=== PATIENT | male | born 1935 | race Caucasian/White ===

== ENCOUNTER 2021-09-16 08:04 | Inpatient (IN) | payer OTHER, BC ==
[2021-09-12 16:55] VITALS: BMI 39.5
[2021-09-16] MEDS ORDERED: CELECOXIB 200 MG CAPSULE PO ONE (09:50)
[2021-09-16] MEDS ORDERED: BUPIVACAINE LIPOSOME/PF (EXPAREL) 266 MG/20 ML VIAL ONE (10:40)
[2021-09-16] MEDS ORDERED: MIDAZOLAM HCL 2 MG/2 ML SINGLE DOSE VIAL ONE ×2 (10:40→11:59)
[2021-09-16] MEDS ORDERED: FENTANYL CITRATE/PF 50 MCG/ML VIAL ONE (10:40)
[2021-09-16] MEDS ORDERED: BUPIVACAINE HCL/PF 0.5% (5MG/ML) 10 ML VIAL ONE (10:41)
[2021-09-16] MEDS ORDERED: ceFAZolin SODIUM 1 GM VIAL ONE ×3 (10:52→19:59)
[2021-09-16] MEDS ORDERED: VANCOMYCIN 1,000 MG VIAL (RESTRICTED TO ID ONLY) ONE (10:52)
[2021-09-16] MEDS ORDERED: CEFAZOLIN 2 GM in DEXTROSE 5%-WATER - 50 ML IVPB ONE (11:00)
[2021-09-16] MEDS ORDERED: TRANEXAMIC ACID 1000 MG/10 ML VIAL IVPUSH ONE (11:00)
[2021-09-16] MEDS ORDERED: PROPOFOL 20 ML ONE ×2 (11:10)
[2021-09-16] MEDS ORDERED: SUCCINYLCHOLINE CHLORIDE 200 MG/10 ML SYRINGE ONE (11:13)
[2021-09-16] MEDS ORDERED: TRANEXAMIC ACID 1000 MG/10 ML VIAL ONE (11:55)
[2021-09-16] MEDS ORDERED: ONDANSETRON 4 MG/2 ML VIAL ONE (12:19)
[2021-09-16] MEDS ORDERED: DEXAMETHASONE SOD PHOSPHATE 4 MG/1 ML VIAL ONE (12:19)
[2021-09-16] MEDS ORDERED: MAG HYDROX/AL HYDROX/SIMETH 30 ML UNIT-DOSE CUP PO PRN (13:36)
[2021-09-16] MEDS ORDERED: ONDANSETRON 4 MG/2 ML VIAL IVPUSH PRN (13:36)
[2021-09-16] MEDS ORDERED: LACTATED RINGERS SOLUTION 1,000 ML IV SCH (13:45)
[2021-09-16] MEDS: KETOROLAC TROMETHAMINE 15 MG/ML VIAL IVPUSH SCH ×2 (14:40→20:35)
[2021-09-16] MEDS ORDERED: ACETAMINOPHEN INJECTION 100 ML IVPB ONE (14:40)
[2021-09-16] MEDS ORDERED: KETOROLAC TROMETHAMINE 30 MG/1 ML VIAL ONE (14:40)
[2021-09-16] MEDS ORDERED: ACETAMINOPHEN 1000 MG/100 ML BAG IVPB ONE (15:00)
[2021-09-16] MEDS ORDERED: KETOROLAC TROMETHAMINE 30 MG/1 ML VIAL IVPUSH SCH (15:00)
[2021-09-16] MEDS ORDERED: oxyCODONE HCL 5 MG TABLET ONE (15:03)
[2021-09-16] MEDS: oxyCODONE HCL 5 MG TABLET PO PRN ×3 (15:10→21:11)
[2021-09-16] MEDS ORDERED: DEXTROSE 5%-WATER - 100 ML IVPB ONE (19:58)
[2021-09-16] MEDS: CEFAZOLIN 3 GM in DEXTROSE 5%-WATER - 100 ML IVPB SCH (20:35)
[2021-09-16] MEDS: RANOLAZINE E.R. 500 MG TABLET (FP) PO SCH (21:10)
[2021-09-16] MEDS: SENNOSIDES/DOCUSATE COMBO (SENNA PLUS) TABLET (UD) PO SCH (21:11)
[2021-09-16] MEDS ORDERED: ZOLPIDEM TARTRATE 5 MG TABLET PO ONE ×2 (21:41→23:15)
[2021-09-16] MEDS ORDERED: ATORVASTATIN CA 20 MG TABLET (FP) PO SCH (22:00)
[2021-09-16] MEDS ORDERED: ZOLPIDEM TARTRATE 5 MG TABLET PO PRN (22:00)
[2021-09-16] MEDS ORDERED: PATIENT'S OWN MEDICATION (NON-FORMULARY) (Simvastatin 40 MG Tablet) PO SCH (22:00)
[2021-09-16] MEDS ORDERED: MONTELUKAST NA 10 MG TABLET PO SCH (22:00)
[2021-09-16] MEDS ORDERED: PATIENT'S OWN MEDICATION (NON-FORMULARY) (Zolpidem Tartrate [Ambien Cr] 12.5 MG Tab.Mphase PO SCH (22:00)
[2021-09-17] MEDS ORDERED: ceFAZolin SODIUM 1 GM VIAL ONE (04:10)
[2021-09-17] MEDS ORDERED: DEXTROSE 5%-WATER - 100 ML IVPB ONE (04:10)
[2021-09-17] MEDS: CEFAZOLIN 3 GM in DEXTROSE 5%-WATER - 100 ML IVPB SCH (04:15)
[2021-09-17] MEDS: oxyCODONE HCL 5 MG TABLET PO PRN ×3 (06:23→12:35)
[2021-09-17] MEDS ORDERED: ASPIRIN 325 MG TABLET PO SCH (08:00)
[2021-09-17 08:09] LABS: HEMATOCRIT 30.4 % (35.4-49); HEMOGLOBIN 10.8 G/dL (11.7-16.9); MCH 34.2 pg (25.7-33.7); MCHC 35.5 g/dl (32.0-35.9); MEAN CELL VOLUME 96.5 fl (80-96); MEAN PLT VOLUME 7.9 fl (7.5-11.1); PLATELET COUNT 238.6 10^3/uL (134-434); RBC 3.15 10^6/uL (4.00-5.60); RDW 13.7 % (11.9-15.9); WHITE BLOOD COUNT 10.2 10^3/uL (4.0-10.8)
[2021-09-17] MEDS: RANOLAZINE E.R. 500 MG TABLET (FP) PO SCH (09:24)
[2021-09-17] MEDS: SENNOSIDES/DOCUSATE COMBO (SENNA PLUS) TABLET (UD) PO SCH (09:25)
[2021-09-17] MEDS ORDERED: LOSARTAN POTASSIUM 50 MG TABLET PO SCH (10:00)
[2021-09-17] MEDS ORDERED: HYDROCHLOROTHIAZIDE 12.5 MG CAPSULE (FP) PO SCH (10:00)
[2021-09-17] MEDS ORDERED: ESCITALOPRAM OXALATE 10 MG TABLET PO SCH (10:00)
[2021-09-17] MEDS ORDERED: PANTOPRAZOLE 40 MG TABLET PO SCH (10:00)
[2021-09-17] MEDS ORDERED: MULTIVITAMINS (DAILY MVI) TABLET (FP) PO SCH (10:00)
[2021-09-17] MEDS ORDERED: amLODIPine BESYLATE 5 MG TABLET (FP) PO SCH (10:00)
[2021-09-17 14:07] VITALS: BP 137/50; PULSE 76; TEMP 98.4
== END 2021-09-17 16:18 | disposition home health service (06) | DRG 470 ==
LOC: FM/S 08:04
PROVIDERS: ADMIT Orthopaedic Surgery; ATTEND Orthopaedic Surgery
PROC: 8E0Y0CZ Robotic Assisted Procedure of Lower Extremity, Open Approach (ICD-10-PCS; 2021-09-16)
PROC: 0SRC0JA Replacement of Right Knee Joint with Synthetic Substitute, Uncemented, Open Approach (ICD-10-PCS; principal; 2021-09-16 12:05)
DX: M17.11 Unilateral primary osteoarthritis, right knee (principal)
CPT/HCPCS: 36415; 73560-TC-RT-FY; 85027; 94660; 94760; 97010-GP; 97116-GP; 97161-GP; C9803-CS; U0003; U0005

== ENCOUNTER 2021-12-16 14:40 | Emergency (ER) | payer OTHER, BC ==
[2021-12-16 14:51] VITALS: BP 133/61; PULSE 87; RESP 20; TEMP 97.7; BMI 36.3
[2021-12-16] MEDS ORDERED: ACETAMINOPHEN 1000 MG/100 ML BAG IVPB ONE (15:01)
[2021-12-16] MEDS ORDERED: SODIUM CHLORIDE 500 ML IV STA ×2 (15:02→16:47)
[2021-12-16] MEDS ORDERED: ACETAMINOPHEN INJECTION 100 ML IVPB ONE (15:04)
[2021-12-16 15:45] LABS: HEMATOCRIT 40.3 % (35.4-49); HEMOGLOBIN 14.3 G/dL (11.7-16.9); MCH 31.5 pg (25.7-33.7); MCHC 35.5 g/dl (32.0-35.9); MEAN CELL VOLUME 88.9 fl (80-96); MEAN PLT VOLUME 7.5 fl (7.5-11.1); PLATELET COUNT 357.1 10^3/uL (134-434); RBC 4.53 10^6/uL (4.00-5.60); WHITE BLOOD COUNT 9.3 10^3/uL (4.0-10.8)
[2021-12-16 15:49] LABS: PLATELET ESTIMATE ADEQUATE
[2021-12-16 15:53] LABS: EPITHELIAL CELLS FEW /hpf
[2021-12-16 15:54] LABS: ALBUMIN 4.5 g/dl (3.4-5.0); BILIRUBIN,TOTAL 1.3 mg/dl (0.2-1); CALCIUM 10.4 mg/dl (8.5-10); CREATININE 1.2 mg/dl (0.55-1.3); TOT PROT 7.7 g/dl (6.4-8.2)
== END 2021-12-16 19:14 | disposition home or self-care (01) ==
LOC: FER 14:40
PROC: 3E033GC Introduction of Other Therapeutic Substance into Peripheral Vein, Percutaneous Approach (ICD-10-PCS; principal; 2021-12-16)
DX: R10.84 Generalized abdominal pain (principal)
CPT/HCPCS: 36415; 74177-TC; 80053; 81003; 81015; 83690; 85027; 99285-25; Q9967

== ENCOUNTER 2021-12-24 13:04 | Inpatient (IN) | payer OTHER, BC ==
[2021-12-24] MEDS ORDERED: ONDANSETRON 4 MG/2 ML VIAL IVPB ONE (13:52)
[2021-12-24] MEDS ORDERED: MAG HYDROX/AL HYDROX/SIMETH -MYLANTA- ORAL SUSPENSION PO ONE (13:52)
[2021-12-24] MEDS ORDERED: FAMOTIDINE 20 MG/50 ML IVPB 20 MG in PREMIX 50 IVPB ONE (13:52)
[2021-12-24] MEDS ORDERED: SUCRALFATE 1 GM TABLET (FP) PO ONE (13:53)
[2021-12-24] MEDS ORDERED: SUCRALFATE 1 GM/10 ML UNIT DOSE CUPS ONE (14:00)
[2021-12-24] MEDS ORDERED: ONDANSETRON 4 MG/2 ML VIAL ONE (14:00)
[2021-12-24] MEDS ORDERED: FAMOTIDINE 20 MG/50 ML IVPB 20 MG/50 ML MG IVPB ONE (14:01)
[2021-12-24] MEDS ORDERED: MAG HYDROX/AL HYDROX/SIMETH 30 ML UNIT-DOSE CUP ONE (14:01)
[2021-12-24 14:45] LABS: HEMATOCRIT 36.5 % (35.4-49); MCHC 35.7 g/dl (32.0-35.9); MEAN CELL VOLUME 89.8 fl (80-96); MEAN PLT VOLUME 7.7 fl (7.5-11.1); RBC 4.07 10^6/uL (4.00-5.60); WHITE BLOOD COUNT 8.5 10^3/uL (4.0-10.8)
[2021-12-24 14:48] LABS: PLATELET ESTIMATE ADEQUATE
[2021-12-24 15:26] LABS: ALBUMIN 3.6 g/dl (3.4-5.0); BILIRUBIN,TOTAL 1.4 mg/dl (0.2-1); CALCIUM 9.4 mg/dl (8.5-10); CREATININE 1.1 mg/dl (0.55-1.3); TOT PROT 6.2 g/dl (6.4-8.2)
[2021-12-24] MEDS ORDERED: DEXTROSE 5%-WATER - 1,000 ML IV SCH (22:45)
[2021-12-25 01:02] VITALS: BMI 35.6
[2021-12-25] MEDS ORDERED: SODIUM CHLORIDE 1,000 ML IV SCH (08:15)
[2021-12-25 09:16] LABS: ALBUMIN 3.3 g/dl (3.4-5.0); BILIRUBIN,TOTAL 1.2 mg/dl (0.2-1); CALCIUM 9.3 mg/dl (8.5-10); TOT PROT 5.8 g/dl (6.4-8.2)
[2021-12-25] MEDS ORDERED: PANTOPRAZOLE SODIUM 40 MG VIAL IVPUSH SCH (10:00)
[2021-12-25] MEDS: ESCITALOPRAM OXALATE 10 MG TABLET PO SCH (10:21)
[2021-12-25] MEDS: RANOLAZINE E.R. 1,000 MG TABLET (FP) PO SCH ×2 (10:21→21:50)
[2021-12-25] MEDS: ENOXAPARIN NA (PORCINE) 40 MG/0.4 ML DISP.SYRIN SQ SCH (10:22)
[2021-12-25 11:33] LABS: HEMATOCRIT 33.8 % (35.4-49); HEMOGLOBIN 11.8 GM/dL (11.7-16.9); MCHC 34.9 g/dl (32.0-35.9); MEAN CELL VOLUME 88.7 fl (80-96); MEAN PLT VOLUME 7.7 fl (7.5-11.1); PLATELET COUNT 297 10^3/uL (134-434); RBC 3.81 M/mm3 (4.00-5.60); RDW 16.7 % (11.9-15.9); WHITE BLOOD COUNT 6.2 K/mm3 (4.0-10.0)
[2021-12-25] MEDS: LOSARTAN POTASSIUM 50 MG TABLET PO SCH (14:54)
[2021-12-25] MEDS: amLODIPine BESYLATE 5 MG TABLET (FP) PO SCH (14:54)
[2021-12-25 15:14] LABS: ANISOCYTOSIS 0; MACROCYTOSIS 0; OVALOCYTE 1+
[2021-12-25] MEDS ORDERED: SIMETHICONE 80 MG TAB.CHEW (FP) PO PRN (17:57)
[2021-12-25] MEDS: ATORVASTATIN CA 20 MG TABLET (FP) PO SCH (21:50)
[2021-12-25] MEDS: MONTELUKAST NA 10 MG TABLET PO SCH (21:50)
[2021-12-25] MEDS: PANTOPRAZOLE SODIUM 40 MG VIAL IVPUSH SCH (21:50)
[2021-12-25] MEDS ORDERED: PATIENT'S OWN MEDICATION (NON-FORMULARY) (Simvastatin 40 MG Tablet) PO SCH (22:00)
[2021-12-25] MEDS ORDERED: ZOLPIDEM TARTRATE 5 MG TABLET PO ONE (22:30)
[2021-12-26] MEDS ORDERED: ACETAMINOPHEN 325 MG TABLET (FP) PO ONE (05:54)
[2021-12-26 08:19] LABS: BILIRUBIN,TOTAL 1.1 mg/dl (0.2-1); CALCIUM 8.8 mg/dl (8.5-10); CREATININE 0.9 mg/dl (0.55-1.3); TOT PROT 5.3 g/dl (6.4-8.2)
[2021-12-26] MEDS ORDERED: LIDOCAINE HCL/PF 2% SDV 5ML VIAL ONE (08:53)
[2021-12-26] MEDS ORDERED: DEXTROSE 5%-NORMAL SALINE 995 ML with POTASSIUM CHLORIDE 10 MEQ IV SCH (09:15)
[2021-12-26 09:36] LABS: BASO % 0.6 % (0-2.0); EOS % 3.2 % (0-4.5); HEMATOCRIT 33.4 % (35.4-49); HEMOGLOBIN 11.4 GM/dL (11.7-16.9); LYMPH % 9.8 % (8-40); MCH 30.2 pg (25.7-33.7); MCHC 34.2 g/dl (32.0-35.9); MEAN CELL VOLUME 88.2 fl (80-96); MEAN PLT VOLUME 8.2 fl (7.5-11.1); NEUT % 77.4 % (42.8-82.8); PLATELET COUNT 286 10^3/uL (134-434); RBC 3.79 M/mm3 (4.00-5.60); RDW 16.6 % (11.9-15.9); WHITE BLOOD COUNT 7.4 K/mm3 (4.0-10.0)
[2021-12-26] MEDS: POTASSIUM CHLORIDE 10 MEQ in DEXTROSE 5%-NORMAL SALINE 1,000 ML IVPB SCH ×2 (10:14→21:48)
[2021-12-26] MEDS: ESCITALOPRAM OXALATE 10 MG TABLET PO SCH (10:16)
[2021-12-26] MEDS: RANOLAZINE E.R. 1,000 MG TABLET (FP) PO SCH ×2 (10:16→21:43)
[2021-12-26] MEDS: amLODIPine BESYLATE 5 MG TABLET (FP) PO SCH ×2 (10:17→11:43)
[2021-12-26] MEDS: LOSARTAN POTASSIUM 50 MG TABLET PO SCH ×2 (10:17→11:43)
[2021-12-26] MEDS: PANTOPRAZOLE SODIUM 40 MG VIAL IVPUSH SCH ×2 (10:17→21:43)
[2021-12-26] MEDS ORDERED: ACETAMINOPHEN 1000 MG/100 ML BAG IVPB ONE (20:47)
[2021-12-26] MEDS: MELATONIN 5 MG TABLETS PO PRN (21:43)
[2021-12-26] MEDS: MONTELUKAST NA 10 MG TABLET PO SCH (21:43)
[2021-12-26] MEDS: ATORVASTATIN CA 20 MG TABLET (FP) PO SCH (21:44)
[2021-12-27] MEDS: RANOLAZINE E.R. 1,000 MG TABLET (FP) PO SCH ×2 (09:10→21:17)
[2021-12-27] MEDS: PANTOPRAZOLE 40 MG TABLET PO SCH (09:10)
[2021-12-27] MEDS: ESCITALOPRAM OXALATE 10 MG TABLET PO SCH (09:10)
[2021-12-27] MEDS: ENOXAPARIN NA (PORCINE) 40 MG/0.4 ML DISP.SYRIN SQ SCH (09:10)
[2021-12-27] MEDS: POTASSIUM CHLORIDE 10 MEQ in DEXTROSE 5%-NORMAL SALINE 1,000 ML IVPB SCH (09:11)
[2021-12-27] MEDS: amLODIPine BESYLATE 5 MG TABLET (FP) PO SCH (09:19)
[2021-12-27] MEDS: LOSARTAN POTASSIUM 50 MG TABLET PO SCH (09:19)
[2021-12-27] MEDS ORDERED: ALBUTEROL SO4 2.5/IPRATROPIUM 0.5 INH SOL 3 ML VIAL.NEB. NEB ONE (09:25)
[2021-12-27 10:21] LABS: CALCIUM 8.3 mg/dl (8.5-10); CREATININE 0.8 mg/dl (0.55-1.3)
[2021-12-27 15:15] LABS: IRON SERUM 20 ug/dL (50-175); TOTAL IRON BINDING CAPACITY 227 ug/dL (250-450)
[2021-12-27] MEDS ORDERED: ACETAMINOPHEN 1000 MG/100 ML BAG IVPB PRN (19:34)
[2021-12-27] MEDS: ATORVASTATIN CA 20 MG TABLET (FP) PO SCH (21:17)
[2021-12-27] MEDS: MONTELUKAST NA 10 MG TABLET PO SCH (21:17)
[2021-12-27] MEDS: MELATONIN 5 MG TABLETS PO PRN (21:17)
[2021-12-28] MEDS: ENOXAPARIN NA (PORCINE) 40 MG/0.4 ML DISP.SYRIN SQ SCH (09:36)
[2021-12-28] MEDS: RANOLAZINE E.R. 1,000 MG TABLET (FP) PO SCH ×2 (09:36→21:08)
[2021-12-28] MEDS: ESCITALOPRAM OXALATE 10 MG TABLET PO SCH (09:37)
[2021-12-28] MEDS: amLODIPine BESYLATE 5 MG TABLET (FP) PO SCH (09:37)
[2021-12-28] MEDS: LOSARTAN POTASSIUM 50 MG TABLET PO SCH (09:37)
[2021-12-28] MEDS: PANTOPRAZOLE 40 MG TABLET PO SCH (09:37)
[2021-12-28 09:47] LABS: CALCIUM 8.6 mg/dl (8.5-10); CREATININE 0.7 mg/dl (0.55-1.3)
[2021-12-28] MEDS: LIDOCAINE 5% TOPICAL PATCH TP SCH (14:29)
[2021-12-28] MEDS: SODIUM CHLORIDE 1 GM TABLET PO SCH (21:08)
[2021-12-28] MEDS: ATORVASTATIN CA 20 MG TABLET (FP) PO SCH (21:08)
[2021-12-28] MEDS: LIDOCAINE PATCH REMOVAL MC SCH (21:08)
[2021-12-28] MEDS: MONTELUKAST NA 10 MG TABLET PO SCH (21:08)
[2021-12-28] MEDS: ZOLPIDEM TARTRATE 5 MG TABLET PO PRN (21:09)
[2021-12-29 08:23] LABS: CALCIUM 8.5 mg/dl (8.5-10); CREATININE 0.7 mg/dl (0.55-1.3)
[2021-12-29] MEDS: ESCITALOPRAM OXALATE 10 MG TABLET PO SCH (09:36)
[2021-12-29] MEDS: SODIUM CHLORIDE 1 GM TABLET PO SCH ×2 (09:36→21:30)
[2021-12-29] MEDS: PANTOPRAZOLE 40 MG TABLET PO SCH (09:36)
[2021-12-29] MEDS: LOSARTAN POTASSIUM 50 MG TABLET PO SCH (09:36)
[2021-12-29] MEDS: amLODIPine BESYLATE 5 MG TABLET (FP) PO SCH (09:36)
[2021-12-29] MEDS: RANOLAZINE E.R. 1,000 MG TABLET (FP) PO SCH ×2 (09:36→21:30)
[2021-12-29] MEDS: LIDOCAINE 5% TOPICAL PATCH TP SCH (09:37)
[2021-12-29] MEDS: ENOXAPARIN NA (PORCINE) 40 MG/0.4 ML DISP.SYRIN SQ SCH (09:37)
[2021-12-29] MEDS ORDERED: SODIUM CHLORIDE 500 ML IV STA (10:44)
[2021-12-29] MEDS: MONTELUKAST NA 10 MG TABLET PO SCH (21:30)
[2021-12-29] MEDS: ATORVASTATIN CA 20 MG TABLET (FP) PO SCH (21:31)
[2021-12-29] MEDS: LIDOCAINE PATCH REMOVAL MC SCH (22:16)
[2021-12-29] MEDS: ZOLPIDEM TARTRATE 5 MG TABLET PO PRN (22:58)
[2021-12-30] MEDS: ESCITALOPRAM OXALATE 10 MG TABLET PO SCH (09:45)
[2021-12-30] MEDS: RANOLAZINE E.R. 1,000 MG TABLET (FP) PO SCH ×2 (09:45→21:35)
[2021-12-30] MEDS: LIDOCAINE 5% TOPICAL PATCH TP SCH (09:45)
[2021-12-30] MEDS: ENOXAPARIN NA (PORCINE) 40 MG/0.4 ML DISP.SYRIN SQ SCH (09:46)
[2021-12-30] MEDS: SODIUM CHLORIDE 1 GM TABLET PO SCH ×2 (09:46→21:35)
[2021-12-30] MEDS: PANTOPRAZOLE 40 MG TABLET PO SCH (09:46)
[2021-12-30 11:52] LABS: ALBUMIN 2.6 g/dl (3.4-5.0); BILIRUBIN,TOTAL 1.2 mg/dl (0.2-1); CALCIUM 8.8 mg/dl (8.5-10); CREATININE 0.8 mg/dl (0.55-1.3); TOT PROT 5.8 g/dl (6.4-8.2)
[2021-12-30] MEDS ORDERED: SODIUM CHLORIDE 500 ML IV STA (12:21)
[2021-12-30] MEDS: amLODIPine BESYLATE 5 MG TABLET (FP) PO SCH (13:21)
[2021-12-30] MEDS: LOSARTAN POTASSIUM 50 MG TABLET PO SCH (13:21)
[2021-12-30] MEDS ORDERED: LIDOCAINE HCL 1%, 10 MG/ML (50 mL VIAL) SQ ONE (14:11)
[2021-12-30] MEDS ORDERED: methylPREDNISolone ACET (DEPO) 40 MG/1 ML VIAL NR ONE (15:00)
[2021-12-30] MEDS ORDERED: FUROSEMIDE 20 MG TABLET (FP) PO ONE (16:04)
[2021-12-30] MEDS ORDERED: POTASSIUM CHLORIDE TABS 20 MEQ TABLET.ER (FP) PO ONE (16:04)
[2021-12-30] MEDS: MONTELUKAST NA 10 MG TABLET PO SCH (21:35)
[2021-12-30] MEDS: ATORVASTATIN CA 20 MG TABLET (FP) PO SCH (21:35)
[2021-12-30] MEDS: ZOLPIDEM TARTRATE 5 MG TABLET PO PRN (21:35)
[2021-12-30] MEDS: LIDOCAINE PATCH REMOVAL MC SCH (22:07)
[2021-12-31 08:44] LABS: ALBUMIN 2.4 g/dl (3.4-5.0); BILIRUBIN,TOTAL 1.2 mg/dl (0.2-1); CALCIUM 8.6 mg/dl (8.5-10); CREATININE 0.8 mg/dl (0.55-1.3); TOT PROT 5.4 g/dl (6.4-8.2)
[2021-12-31] MEDS: LIDOCAINE 5% TOPICAL PATCH TP SCH (10:02)
[2021-12-31] MEDS: ENOXAPARIN NA (PORCINE) 40 MG/0.4 ML DISP.SYRIN SQ SCH (10:02)
[2021-12-31] MEDS: PANTOPRAZOLE 40 MG TABLET PO SCH (10:02)
[2021-12-31] MEDS: RANOLAZINE E.R. 1,000 MG TABLET (FP) PO SCH (10:02)
[2021-12-31] MEDS: LOSARTAN POTASSIUM 50 MG TABLET PO SCH (10:02)
[2021-12-31] MEDS: amLODIPine BESYLATE 5 MG TABLET (FP) PO SCH (10:03)
[2021-12-31] MEDS: ESCITALOPRAM OXALATE 10 MG TABLET PO SCH (10:03)
[2021-12-31] MEDS ORDERED: POTASSIUM CHLORIDE TABS 20 MEQ TABLET.ER (FP) PO ONE (10:15)
[2021-12-31] MEDS ORDERED: FUROSEMIDE 20 MG TABLET (FP) PO ONE (10:15)
[2021-12-31] MEDS ORDERED: methylPREDNISolone ACET (DEPO) 40 MG/1 ML VIAL NR ONE (11:00)
[2021-12-31] MEDS ORDERED: LIDOCAINE HCL 1%, 10 MG/ML (50 mL VIAL) SQ ONE (11:00)
[2021-12-31 11:50] VITALS: BP 120/40; PULSE 79; RESP 18; TEMP 98.7
== END 2021-12-31 15:04 | DRG 641 ==
LOC: FER 13:04 → FM/S 21:31
PROVIDERS: ADMIT Internal Medicine; ATTEND Family Medicine
PROC: 0DB68ZX Excision of Stomach, Via Natural or Artificial Opening Endoscopic, Diagnostic (ICD-10-PCS; 2021-12-26)
PROC: 0DB58ZX Excision of Esophagus, Via Natural or Artificial Opening Endoscopic, Diagnostic (ICD-10-PCS; 2021-12-26)
PROC: 0DB98ZX Excision of Duodenum, Via Natural or Artificial Opening Endoscopic, Diagnostic (ICD-10-PCS; principal; 2021-12-26 09:23)
PROC: 3E0U33Z Introduction of Anti-inflammatory into Joints, Percutaneous Approach (ICD-10-PCS; 2021-12-31)
PROC: 3E0U3BZ Introduction of Anesthetic Agent into Joints, Percutaneous Approach (ICD-10-PCS; 2021-12-31)
PROC: 0S9D3ZZ Drainage of Left Knee Joint, Percutaneous Approach (ICD-10-PCS; 2021-12-31)
DX: E87.1 Hypo-osmolality and hyponatremia (principal); K86.2 Cyst of pancreas; K57.90 Diverticulosis of intestine, part unspecified, without perforation or abscess without bleeding; K63.5 Polyp of colon; I25.10 Atherosclerotic heart disease of native coronary artery without angina pectoris; I10 Essential (primary) hypertension; E78.5 Hyperlipidemia, unspecified; M17.12 Unilateral primary osteoarthritis, left knee; K29.70 Gastritis, unspecified, without bleeding; F41.8 Other specified anxiety disorders; E87.0 Hyperosmolality and hypernatremia; R53.1 Weakness; D49.0 Neoplasm of unspecified behavior of digestive system; R14.0 Abdominal distension (gaseous); E66.9 Obesity, unspecified; Z68.35 Body mass index [BMI] 35.0-35.9, adult; M25.562 Pain in left knee; M25.561 Pain in right knee; M25.462 Effusion, left knee; T50.2X5A Adverse effect of carbonic-anhydrase inhibitors, benzothiadiazides and other diuretics, initial encounter; Z96.651 Presence of right artificial knee joint
CPT/HCPCS: 36415; 71045-TC-FY; 73560-TC-LT-FY; 80048; 80053; 81003; 82378; 82436; 82607; 82728; 82747; 83540; 83550; 83690; 83930; 83935; 84133; 84300; 84484; 84550; 85014; 85025; 85027; 86301; 87086; 87186; 88305-TC; 93005; 94640; 97116-GP; 97162-GP; 99285-25; C9803-CS; U0003; U0005

== ENCOUNTER 2022-02-17 16:10 | Inpatient (IN) | payer OTHER, BC ==
[2022-02-17] MEDS ORDERED: ONDANSETRON 4 MG/2 ML VIAL IVPUSH ONE (19:15)
[2022-02-17] MEDS ORDERED: ONDANSETRON 4 MG/2 ML VIAL ONE (19:31)
[2022-02-17 19:42] LABS: EOS % 4.5 % (0-4.5); HEMATOCRIT 37.8 % (35.4-49); HEMOGLOBIN 12.7 GM/dL (11.7-16.9); LYMPH % 16.7 % (8-40); MCH 31.7 pg (25.7-33.7); MCHC 33.6 g/dl (32.0-35.9); MEAN CELL VOLUME 94.2 fl (80-96); MEAN PLT VOLUME 7.8 fl (7.5-11.1); MONO % 8.4 % (3.8-10.2); NEUT % 69.4 % (42.8-82.8); PLATELET COUNT 332 10^3/uL (134-434); RBC 4.01 M/mm3 (4.00-5.60); RDW 16.7 % (11.9-15.9); URINE APPEARANCE CLEAR; URINE BILIRUBIN NEGATIVE (NEGATIVE); URINE COLOR YELLOW; URINE GLUCOSE (UA) NEGATIVE (NEGATIVE); URINE KETONE 2+ (NEGATIVE); URINE LEUK ESTERASE NEGATIVE (NEGATIVE); URINE NITRITE NEGATIVE (NEGATIVE); URINE PROTEIN NEGATIVE (NEGATIVE); URINE UROBILINOGEN 0.2 mg/dL (0.2-1.0); WHITE BLOOD COUNT 7.8 K/mm3 (4.0-10.0)
[2022-02-17 19:53] LABS: INR 1.06 (0.83-1.09); PROTHROMBIN TIME (PATIENT) 12.2 SEC (9.7-13.0)
[2022-02-17 19:59] LABS: CHLORIDE 98 mmol/L (98-107); SODIUM 136 mmol/L (136-145)
[2022-02-17 20:02] LABS: ALBUMIN 3.6 g/dl (3.4-5.0); ANION GAP 20 MMOL/L (8-16); BLOOD UREA NITROGEN 19.8 mg/dL (7-18); CALCIUM 9.9 mg/dL (8.5-10.1); CO2 17 mmol/L (21-32); GLUCOSE,RANDOM 77 mg/dL (74-106); LIPASE 420 U/L (73-393)
[2022-02-17 20:03] LABS: MAGNESIUM 1.9 mg/dL (1.8-2.4)
[2022-02-17 20:05] LABS: CREATININE 1.2 mg/dL (0.55-1.3); SGOT/AST 49 U/L (15-37); SGPT/ALT 20 U/L (13-61)
[2022-02-17 20:06] LABS: BILIRUBIN,TOTAL 1.1 mg/dL (0.2-1)
[2022-02-17 20:07] LABS: TOT PROT 6.7 g/dl (6.4-8.2)
[2022-02-17 20:08] LABS: ALK PHOS 99 U/L (45-117)
[2022-02-17] MEDS ORDERED: SODIUM CHLORIDE 0.9% 500 ML INFUS.BAG IV ONE (20:21)
[2022-02-17 22:32] LABS: VENOUS BASE EXCESS -6.9 mmol/L (-2-2); VENOUS PCO2 32.7 mmHg (38-52); VENOUS PH 7.35 (7.310-7.410)
[2022-02-17 23:01] LABS: N-TERMINAL BNP 435.8 pg/ml (5-450)
[2022-02-18] MEDS: DEXTROSE 5%-0.45% SALINE 1,000 ML IV SCH (00:12)
[2022-02-18] MEDS ORDERED: LOSARTAN POTASSIUM 50 MG TABLET PO SCH (10:00)
[2022-02-18] MEDS ORDERED: RANOLAZINE E.R. 500 MG TABLET (FP) ONE ×2 (10:12→22:12)
[2022-02-18] MEDS: amLODIPine BESYLATE 5 MG TABLET (FP) PO SCH (10:25)
[2022-02-18] MEDS: RANOLAZINE E.R. 1,000 MG TABLET (FP) PO SCH ×2 (10:29→22:45)
[2022-02-18] MEDS: ESCITALOPRAM OXALATE 10 MG TABLET PO SCH (10:29)
[2022-02-18] MEDS: PANTOPRAZOLE 40 MG TABLET PO SCH (10:29)
[2022-02-18] MEDS: ACETAMINOPHEN 325 MG TABLET (FP) PO PRN (11:06)
[2022-02-18 11:54] LABS: BILIRUBIN,DIRECT 0.1 mg/dL (0.0-0.2)
[2022-02-18 13:02] LABS: BASO % 0.9 % (0-2.0); EOS % 5.5 % (0-4.5); HEMOGLOBIN 11.5 GM/dL (11.7-16.9); LYMPH % 16.3 % (8-40); MCHC 32.9 g/dl (32.0-35.9); MEAN CELL VOLUME 94.3 fl (80-96); MEAN PLT VOLUME 7.4 fl (7.5-11.1); MONO % 9.1 % (3.8-10.2); NEUT % 68.2 % (42.8-82.8); PLATELET COUNT 293 10^3/uL (134-434); RBC 3.72 M/mm3 (4.00-5.60); RDW 16.2 % (11.9-15.9)
[2022-02-18 13:46] LABS: BILIRUBIN,DIRECT 0.3 mg/dL (0.0-0.2); CREATININE 1.1 mg/dL (0.55-1.3)
[2022-02-18 13:47] LABS: BILIRUBIN,TOTAL 0.8 mg/dL (0.2-1)
[2022-02-18 13:48] LABS: CALCIUM 9.4 mg/dL (8.5-10.1)
[2022-02-18 13:51] LABS: MAGNESIUM 1.9 mg/dL (1.8-2.4)
[2022-02-18] MEDS ORDERED: MAG HYDROX/AL HYDROX/SIMETH 30 ML UNIT-DOSE CUP PO PRN (14:58)
[2022-02-18 17:57] LABS: BASO % 1.2 % (0-2.0); EOS % 6.6 % (0-4.5); HEMATOCRIT 35.4 % (35.4-49); HEMOGLOBIN 11.7 GM/dL (11.7-16.9); LYMPH % 17.7 % (8-40); MCH 31.1 pg (25.7-33.7); MCHC 33.2 g/dl (32.0-35.9); MEAN CELL VOLUME 93.8 fl (80-96); MEAN PLT VOLUME 7.2 fl (7.5-11.1); MONO % 9.9 % (3.8-10.2); NEUT % 64.6 % (42.8-82.8); PLATELET COUNT 292 10^3/uL (134-434); RBC 3.77 M/mm3 (4.00-5.60); RDW 15.9 % (11.9-15.9); WHITE BLOOD COUNT 6.2 K/mm3 (4.0-10.0)
[2022-02-18] MEDS: SUCRALFATE 1 GM/10 ML UNIT DOSE CUPS PO SCH (22:45)
[2022-02-18] MEDS: MONTELUKAST NA 10 MG TABLET PO SCH (22:45)
[2022-02-18] MEDS: ATORVASTATIN CA 10 MG TABLET (FP) PO SCH (22:45)
[2022-02-18 23:30] LABS: BLOOD UREA NITROGEN 14.7 mg/dL (7-18); CALCIUM 9.2 mg/dL (8.5-10.1); MAGNESIUM 1.7 mg/dL (1.8-2.4)
[2022-02-18 23:33] LABS: BILIRUBIN,DIRECT 0.2 mg/dL (0.0-0.2); CREATININE 1.1 mg/dL (0.55-1.3)
[2022-02-18 23:35] LABS: BILIRUBIN,TOTAL 0.8 mg/dL (0.2-1)
[2022-02-19] MEDS: DEXTROSE 5%-0.45% SALINE 1,000 ML IV SCH (04:49)
[2022-02-19] MEDS ORDERED: RANOLAZINE E.R. 500 MG TABLET (FP) ONE ×3 (09:43→22:14)
[2022-02-19] MEDS: amLODIPine BESYLATE 5 MG TABLET (FP) PO SCH (09:57)
[2022-02-19] MEDS: SUCRALFATE 1 GM/10 ML UNIT DOSE CUPS PO SCH ×4 (09:57→22:51)
[2022-02-19] MEDS: ESCITALOPRAM OXALATE 10 MG TABLET PO SCH (09:58)
[2022-02-19] MEDS: RANOLAZINE E.R. 1,000 MG TABLET (FP) PO SCH ×2 (10:00→22:51)
[2022-02-19] MEDS: PANTOPRAZOLE 40 MG TABLET PO SCH (10:00)
[2022-02-19] MEDS: POLYETHYLENE GLYCOL (HEALTHYLAX) 3350 17 GM PACKET PO SCH (10:00)
[2022-02-19] MEDS ORDERED: MAGNESIUM OXIDE 400 MG TABLET (FP) PO ONE (15:34)
[2022-02-19] MEDS: SIMETHICONE 80 MG TAB.CHEW (FP) PO PRN (22:50)
[2022-02-19] MEDS: MONTELUKAST NA 10 MG TABLET PO SCH (22:50)
[2022-02-19] MEDS: ACETAMINOPHEN 325 MG TABLET (FP) PO PRN (22:51)
[2022-02-19] MEDS: ATORVASTATIN CA 10 MG TABLET (FP) PO SCH (22:51)
[2022-02-20] MEDS ORDERED: RANOLAZINE E.R. 500 MG TABLET (FP) ONE ×2 (09:59→21:05)
[2022-02-20] MEDS: ESCITALOPRAM OXALATE 10 MG TABLET PO SCH (10:16)
[2022-02-20] MEDS: PANTOPRAZOLE 40 MG TABLET PO SCH (10:17)
[2022-02-20] MEDS: SUCRALFATE 1 GM/10 ML UNIT DOSE CUPS PO SCH ×4 (10:17→21:12)
[2022-02-20] MEDS: amLODIPine BESYLATE 5 MG TABLET (FP) PO SCH (10:17)
[2022-02-20] MEDS: RANOLAZINE E.R. 1,000 MG TABLET (FP) PO SCH ×2 (10:17→21:12)
[2022-02-20] MEDS: POLYETHYLENE GLYCOL (HEALTHYLAX) 3350 17 GM PACKET PO SCH (10:17)
[2022-02-20] MEDS: MONTELUKAST NA 10 MG TABLET PO SCH (21:13)
[2022-02-20] MEDS: ATORVASTATIN CA 10 MG TABLET (FP) PO SCH (21:13)
[2022-02-20] MEDS: ACETAMINOPHEN 325 MG TABLET (FP) PO PRN (21:13)
[2022-02-21] MEDS ORDERED: RANOLAZINE E.R. 500 MG TABLET (FP) ONE ×2 (09:50→21:14)
[2022-02-21] MEDS: SUCRALFATE 1 GM/10 ML UNIT DOSE CUPS PO SCH ×4 (09:56→21:18)
[2022-02-21] MEDS: amLODIPine BESYLATE 5 MG TABLET (FP) PO SCH (09:56)
[2022-02-21] MEDS: ESCITALOPRAM OXALATE 10 MG TABLET PO SCH (09:56)
[2022-02-21] MEDS: PANTOPRAZOLE 40 MG TABLET PO SCH (09:57)
[2022-02-21] MEDS: POLYETHYLENE GLYCOL (HEALTHYLAX) 3350 17 GM PACKET PO SCH (09:57)
[2022-02-21] MEDS: RANOLAZINE E.R. 1,000 MG TABLET (FP) PO SCH ×2 (09:58→21:20)
[2022-02-21] MEDS: ATORVASTATIN CA 10 MG TABLET (FP) PO SCH (21:18)
[2022-02-21] MEDS: MONTELUKAST NA 10 MG TABLET PO SCH (21:20)
[2022-02-22] MEDS ORDERED: RANOLAZINE E.R. 500 MG TABLET (FP) ONE ×2 (09:32→20:39)
[2022-02-22] MEDS: RANOLAZINE E.R. 1,000 MG TABLET (FP) PO SCH ×2 (09:36→21:33)
[2022-02-22] MEDS: POLYETHYLENE GLYCOL (HEALTHYLAX) 3350 17 GM PACKET PO SCH (09:37)
[2022-02-22] MEDS: SUCRALFATE 1 GM/10 ML UNIT DOSE CUPS PO SCH ×4 (09:37→21:32)
[2022-02-22] MEDS: ESCITALOPRAM OXALATE 10 MG TABLET PO SCH (09:38)
[2022-02-22] MEDS: amLODIPine BESYLATE 5 MG TABLET (FP) PO SCH (09:38)
[2022-02-22] MEDS: PANTOPRAZOLE 40 MG TABLET PO SCH (09:39)
[2022-02-22 16:50] VITALS: BMI 34.4
[2022-02-22] MEDS: ATORVASTATIN CA 10 MG TABLET (FP) PO SCH (21:32)
[2022-02-22] MEDS: MONTELUKAST NA 10 MG TABLET PO SCH (21:34)
[2022-02-23] MEDS: SUCRALFATE 1 GM/10 ML UNIT DOSE CUPS PO SCH ×4 (09:11→22:46)
[2022-02-23] MEDS: ESCITALOPRAM OXALATE 10 MG TABLET PO SCH (09:11)
[2022-02-23] MEDS: PANTOPRAZOLE 40 MG TABLET PO SCH (09:12)
[2022-02-23] MEDS: POLYETHYLENE GLYCOL (HEALTHYLAX) 3350 17 GM PACKET PO SCH (09:12)
[2022-02-23] MEDS: RANOLAZINE E.R. 1,000 MG TABLET (FP) PO SCH ×2 (09:12→22:46)
[2022-02-23] MEDS: amLODIPine BESYLATE 5 MG TABLET (FP) PO SCH (09:12)
[2022-02-23 09:17] VITALS: RESP 20
[2022-02-23] MEDS: METOCLOPRAMIDE HCL 10 MG TABLET (FP) PO SCH (16:42)
[2022-02-23] MEDS ORDERED: RANOLAZINE E.R. 500 MG TABLET (FP) ONE (22:45)
[2022-02-23] MEDS: MONTELUKAST NA 10 MG TABLET PO SCH (22:46)
[2022-02-23] MEDS: ATORVASTATIN CA 10 MG TABLET (FP) PO SCH (22:46)
[2022-02-24] MEDS: METOCLOPRAMIDE HCL 10 MG TABLET (FP) PO SCH ×3 (07:54→17:45)
[2022-02-24] MEDS: POLYETHYLENE GLYCOL (HEALTHYLAX) 3350 17 GM PACKET PO SCH (09:48)
[2022-02-24] MEDS ORDERED: RANOLAZINE E.R. 500 MG TABLET (FP) ONE (09:56)
[2022-02-24] MEDS: PANTOPRAZOLE 40 MG TABLET PO SCH (10:04)
[2022-02-24] MEDS: amLODIPine BESYLATE 5 MG TABLET (FP) PO SCH (10:04)
[2022-02-24] MEDS: ESCITALOPRAM OXALATE 10 MG TABLET PO SCH (10:04)
[2022-02-24] MEDS: SIMETHICONE 80 MG TAB.CHEW (FP) PO PRN ×2 (10:04→17:45)
[2022-02-24] MEDS: RANOLAZINE E.R. 1,000 MG TABLET (FP) PO SCH (10:05)
[2022-02-24] MEDS: SUCRALFATE 1 GM/10 ML UNIT DOSE CUPS PO SCH ×4 (10:05→22:03)
[2022-02-24] MEDS: MONTELUKAST NA 10 MG TABLET PO SCH (22:03)
[2022-02-24] MEDS: ATORVASTATIN CA 10 MG TABLET (FP) PO SCH (22:03)
[2022-02-24] MEDS: RANOLAZINE E.R. 500 MG TABLET (FP) PO SCH (22:03)
[2022-02-25] MEDS: METOCLOPRAMIDE HCL 10 MG TABLET (FP) PO SCH ×2 (06:19→10:58)
[2022-02-25 06:30] VITALS: TEMP 98.6
[2022-02-25] MEDS: SUCRALFATE 1 GM/10 ML UNIT DOSE CUPS PO SCH ×2 (09:49→13:32)
[2022-02-25] MEDS: ESCITALOPRAM OXALATE 10 MG TABLET PO SCH (09:49)
[2022-02-25] MEDS: amLODIPine BESYLATE 5 MG TABLET (FP) PO SCH (09:49)
[2022-02-25] MEDS: PANTOPRAZOLE 40 MG TABLET PO SCH (09:49)
[2022-02-25] MEDS: RANOLAZINE E.R. 500 MG TABLET (FP) PO SCH (09:49)
[2022-02-25] MEDS: POLYETHYLENE GLYCOL (HEALTHYLAX) 3350 17 GM PACKET PO SCH (09:49)
[2022-02-25 16:00] VITALS: BP 131/58; PULSE 78
== END 2022-02-25 16:25 | DRG 389 ==
LOC: JER 16:10 → JERBED 22:30 → J8W 02-18 02:55 → OBSVTOIN 02-19 09:50
PROVIDERS: ADMIT Internal Medicine; ATTEND Family Medicine
DX: K56.7 Ileus, unspecified (principal); J98.11 Atelectasis; K86.1 Other chronic pancreatitis; J44.9 Chronic obstructive pulmonary disease, unspecified; I10 Essential (primary) hypertension; E78.5 Hyperlipidemia, unspecified; F41.8 Other specified anxiety disorders; E87.5 Hyperkalemia; K57.90 Diverticulosis of intestine, part unspecified, without perforation or abscess without bleeding; E86.0 Dehydration; I25.10 Atherosclerotic heart disease of native coronary artery without angina pectoris; E66.9 Obesity, unspecified; Z68.34 Body mass index [BMI] 34.0-34.9, adult
CPT/HCPCS: 0241U-QW; 36415; 71045-TC-FY; 73700-TC-RT; 74018-TC-FY; 74176-TC; 74177-TC; 76705-TC; 80048; 80053; 81003; 82247; 82248; 82272; 82550; 82553; 82803; 83605; 83690; 83735; 83880; 84132; 84484; 85025; 85610; 85730; 87086; 93005; 93010; 97116-GP; 97162-GP; 99285-25; C9803-CS; G0378; Q9967; U0003; U0005

== ENCOUNTER 2022-03-03 07:07 | Day surgery (SDC) | payer OTHER, BC ==
[2022-02-26 09:39] VITALS: BMI 33.9
[~2022-03-03 07:07] MED LIST: VANCOMYCIN 1,000 MG VIAL (RESTRICTED TO ID ONLY) IVPB ONE
[2022-03-03] MEDS ORDERED: VANCOMYCIN 1,000 MG VIAL (RESTRICTED TO ID ONLY) ONE (07:15)
[2022-03-03] MEDS ORDERED: ceFAZolin SODIUM 1 GM VIAL ONE (07:15)
[2022-03-03] MEDS ORDERED: BUPIVACAINE HCL/PF 0.5% (5 MG/ML) 30 ML VIAL IJ ONE ×2 (08:47→10:55)
[2022-03-03] MEDS ORDERED: MIDAZOLAM HCL 2 MG/2 ML SINGLE DOSE VIAL ONE ×2 (08:47→10:55)
[2022-03-03] MEDS ORDERED: DEXAMETHASONE SOD PHOSPHATE 10 MG/1 ML VIAL ONE (08:48)
[2022-03-03] MEDS ORDERED: TRANEXAMIC ACID 1000 MG/10 ML VIAL IVPUSH ONE (09:30)
[2022-03-03] MEDS ORDERED: CEFAZOLIN 2 GM in DEXTROSE 5%-WATER - 50 ML IVPB ONE (09:30)
[2022-03-03] MEDS ORDERED: ROPIVACAINE HCL 0.5% 30ML VIAL ONE (10:55)
[2022-03-03] MEDS ORDERED: MAG HYDROX/AL HYDROX/SIMETH 30 ML UNIT-DOSE CUP PO PRN (12:16)
[2022-03-03] MEDS ORDERED: ONDANSETRON 4 MG/2 ML VIAL IVPUSH PRN (12:16)
[2022-03-03] MEDS ORDERED: ACETAMINOPHEN 1000 MG/100 ML BAG IVPB PRN (14:01)
[2022-03-03] MEDS ORDERED: oxyCODONE HCL 5 MG TABLET PO PRN (14:11)
[2022-03-03] MEDS ORDERED: FENTANYL CITRATE/PF 50 MCG/ML VIAL ONE ×3 (14:16→14:41)
[2022-03-03] MEDS ORDERED: ONDANSETRON 4 MG/2 ML VIAL ONE (14:42)
[2022-03-03] MEDS: LACTATED RINGERS SOLUTION 1,000 ML IV SCH ×2 (16:57→16:58)
[2022-03-03] MEDS: CEFAZOLIN 3 GM in DEXTROSE 5%-WATER - 100 ML IVPB SCH (20:13)
[2022-03-03] MEDS: RANOLAZINE E.R. 1,000 MG TABLET (FP) PO SCH (22:09)
[2022-03-03] MEDS: oxyCODONE HCL 10 MG SUSTAINED ACTING TABLET PO SCH (22:09)
[2022-03-03] MEDS: SODIUM CHLORIDE 1 GM TABLET PO SCH (22:10)
[2022-03-03] MEDS: SENNOSIDES/DOCUSATE COMBO (SENNA PLUS) TABLET (UD) PO SCH (22:10)
[2022-03-04] MEDS: CEFAZOLIN 3 GM in DEXTROSE 5%-WATER - 100 ML IVPB SCH (03:19)
[2022-03-04 07:52] LABS: HEMATOCRIT 30.5 % (35.4-49); HEMOGLOBIN 10.5 G/dL (11.7-16.9); MCH 32.5 pg (25.7-33.7); MCHC 34.3 g/dl (32.0-35.9); MEAN CELL VOLUME 94.8 fl (80-96); MEAN PLT VOLUME 7.4 fl (7.5-11.1); PLATELET COUNT 260.9 10^3/uL (134-434); RBC 3.22 10^6/uL (4.00-5.60); RDW 14.7 % (11.9-15.9); WHITE BLOOD COUNT 6.5 10^3/uL (4.0-10.8)
[2022-03-04] MEDS: RANOLAZINE E.R. 1,000 MG TABLET (FP) PO SCH ×2 (09:18→21:24)
[2022-03-04] MEDS: SODIUM CHLORIDE 1 GM TABLET PO SCH ×2 (09:18→21:24)
[2022-03-04] MEDS: ESCITALOPRAM OXALATE 10 MG TABLET PO SCH (09:18)
[2022-03-04] MEDS: SENNOSIDES/DOCUSATE COMBO (SENNA PLUS) TABLET (UD) PO SCH ×2 (09:19→21:23)
[2022-03-04] MEDS: oxyCODONE HCL 10 MG SUSTAINED ACTING TABLET PO SCH ×2 (09:19→21:24)
[2022-03-04] MEDS: PANTOPRAZOLE 40 MG TABLET PO SCH (09:19)
[2022-03-04] MEDS: MULTIVITAMINS (DAILY MVI) TABLET (FP) PO SCH (09:19)
[2022-03-04] MEDS: ENOXAPARIN NA (PORCINE) 40 MG/0.4 ML DISP.SYRIN SQ SCH (09:20)
[2022-03-04] MEDS: LOSARTAN POTASSIUM 50 MG TABLET PO SCH (09:23)
[2022-03-04] MEDS: amLODIPine BESYLATE 5 MG TABLET (FP) PO SCH (09:24)
[2022-03-04] MEDS: LACTATED RINGERS SOLUTION 1,000 ML IV SCH (14:15)
[2022-03-04] MEDS: oxyCODONE HCL 5 MG TABLET PO PRN (17:31)
[2022-03-05 07:37] LABS: HEMATOCRIT 28.2 % (35.4-49); HEMOGLOBIN 9.8 G/dL (11.7-16.9); MCH 32.8 pg (25.7-33.7); MCHC 34.7 g/dl (32.0-35.9); MEAN CELL VOLUME 94.6 fl (80-96); MEAN PLT VOLUME 7.6 fl (7.5-11.1); PLATELET COUNT 256.3 10^3/uL (134-434); RBC 2.98 10^6/uL (4.00-5.60); RDW 14.5 % (11.9-15.9)
[2022-03-05] MEDS ORDERED: IRON SUCROSE INJECTION 200 MG in SODIUM CHLORIDE 90 ML IVPB ONE (08:00)
[2022-03-05] MEDS: ENOXAPARIN NA (PORCINE) 40 MG/0.4 ML DISP.SYRIN SQ SCH (09:17)
[2022-03-05] MEDS: ESCITALOPRAM OXALATE 10 MG TABLET PO SCH (09:17)
[2022-03-05] MEDS: oxyCODONE HCL 10 MG SUSTAINED ACTING TABLET PO SCH (09:18)
[2022-03-05] MEDS: MULTIVITAMINS (DAILY MVI) TABLET (FP) PO SCH (09:18)
[2022-03-05] MEDS: SENNOSIDES/DOCUSATE COMBO (SENNA PLUS) TABLET (UD) PO SCH (09:18)
[2022-03-05] MEDS: PANTOPRAZOLE 40 MG TABLET PO SCH (09:18)
[2022-03-05] MEDS: SODIUM CHLORIDE 1 GM TABLET PO SCH (09:18)
[2022-03-05] MEDS: RANOLAZINE E.R. 1,000 MG TABLET (FP) PO SCH (09:18)
[2022-03-05] MEDS: LOSARTAN POTASSIUM 50 MG TABLET PO SCH (09:19)
[2022-03-05] MEDS: amLODIPine BESYLATE 5 MG TABLET (FP) PO SCH (09:19)
[2022-03-05] MEDS ORDERED: FERROUS SO4 325 MG TABLET (FP) PO SCH (10:00)
[2022-03-05] MEDS: LACTATED RINGERS SOLUTION 1,000 ML IV SCH (14:12)
[2022-03-05] MEDS: oxyCODONE HCL 5 MG TABLET PO PRN (14:12)
[2022-03-05 18:13] VITALS: BP 110/53; PULSE 67; RESP 17; TEMP 98.9
== END 2022-03-05 17:30 | disposition short-term general hospital (02) ==
LOC: FASUSAT 07:07 → FM/S 16:24 → FASUSAT 03-05 17:30
PROVIDERS: ATTEND Orthopaedic Surgery
PROC: 8E0Y0CZ Robotic Assisted Procedure of Lower Extremity, Open Approach (ICD-10-PCS; 2022-03-03)
PROC: 0SR90JA Replacement of Right Hip Joint with Synthetic Substitute, Uncemented, Open Approach (ICD-10-PCS; principal; 2022-03-03 12:21)
DX: M16.11 Unilateral primary osteoarthritis, right hip (principal); R33.9 Retention of urine, unspecified; I25.10 Atherosclerotic heart disease of native coronary artery without angina pectoris; I10 Essential (primary) hypertension; E78.5 Hyperlipidemia, unspecified; J45.909 Unspecified asthma, uncomplicated; E66.9 Obesity, unspecified; Z68.33 Body mass index [BMI] 33.0-33.9, adult
CPT/HCPCS: 20985; 27130; C1713; C1776; S2900; 36415; 73502-TC-RT-FY; 85027; 88305-TC; 88311-TC; 94760; 97010-GP; 97116-GP; 97162-GP; J1100; J1756